=== PATIENT | female | born 1985 | race Caucasian/White ===

== ENCOUNTER 2017-06-16 22:31 | Emergency (ER) | payer SELFPAY ==
[~2017-06-16] VITALS: Ht 157.5 cm; Wt 106.1 kg
[2017-06-16 22:39] VITALS: BP 139/86; Ht 157.5 cm; Wt 106.1 kg
== END 2017-06-17 06:08 | disposition left against medical advice (07) ==
LOC: ED 22:31
DX: Z53.21 Procedure and treatment not carried out due to patient leaving prior to being seen by health care provider (principal)

== ENCOUNTER 2018-09-26 22:12 | Emergency (ER) | payer SELFPAY ==
[~2018-09-26] VITALS: Ht 157.5 cm; Wt 60.1 kg
[2018-09-26 22:25] VITALS: Ht 157.5 cm; Wt 60.1 kg
[2018-09-26 23:56] VITALS: BP 137/87
== END 2018-09-26 23:56 | disposition home or self-care (01) ==
LOC: ED 22:12
DX: M54.6 Pain in thoracic spine (principal); I10 Essential (primary) hypertension; S16.1XXA Strain of muscle, fascia and tendon at neck level, initial encounter; V48.6XXA Car passenger injured in noncollision transport accident in traffic accident, initial encounter; Y93.89 Activity, other specified; Y92.488 Other paved roadways as the place of occurrence of the external cause; Y99.8 Other external cause status
CPT/HCPCS: J1885

== ENCOUNTER 2020-05-05 21:54 | Emergency (ER) | payer MEDICAID ==
[~2020-05-05] VITALS: Ht 157.5 cm; Wt 105.7 kg
[2020-05-05 22:03] VITALS: Ht 157.5 cm; Wt 105.7 kg
[2020-05-06 00:19] LABS: microscopic required? NO
[2020-05-06 00:28] LABS: UA SPECIFIC GRAVITY 1.025 (1.005-1.035); urine erythrocyte NEGATIVE (NEGATIVE)
[2020-05-06 00:30] LABS: BASOPHIL % 0.2 % (0-2); PLATELET COUNT 346 x10^3mcL (130-400)
[2020-05-06 00:40] LABS: CALCIUM 8.7 mg/dL (8.5-10.1); CARBON DIOXIDE 26.6 mmol/L (21-32); CHLORIDE SERUM 103 mmol/L (98-107); CREATININE SERUM 0.6 mg/dL (0.6-1.0); GFR1 > 60 mL/min; GLUCOSE SERUM 95 mg/dL (74-106); POTASSIUM SERUM 3.5 mmol/L (3.5-5.1); SODIUM SERUM 137 mmol/L (136-145)
[2020-05-06 00:45] LABS: ALBUMIN 3.5 g/dL (3.4-5.0); ALKALINE PHOSPHATASE 86 U/L (46-116); ALT/SGPT 19 U/L (14-59); AST/SGOT 9 U/L (15-37); BILIRUBIN TOTAL 0.32 mg/dL (0.20-1.00); LIPASE 99 IU/L (73-393); TOTAL PROTEIN, SERUM 8.1 g/dL (6.4-8.2)
[2020-05-06 02:23] VITALS: BP 104/63
== END 2020-05-06 02:23 | disposition home or self-care (01) ==
LOC: ED 21:54
PROVIDERS: Emergency Medicine
DX: N83.201 Unspecified ovarian cyst, right side (principal); M47.816 Spondylosis without myelopathy or radiculopathy, lumbar region; I10 Essential (primary) hypertension
CPT/HCPCS: J1885; J2405; J7030

== ENCOUNTER 2020-08-17 22:46 | Emergency (ER) | payer MEDICAID ==
[~2020-08-17] VITALS: Ht 157.5 cm; Wt 106.1 kg
[2020-08-17 22:56] VITALS: Ht 157.5 cm; Wt 106.1 kg
[2020-08-18] MEDS ORDERED: IBU600 M2 PO (00:34)
[2020-08-18 00:47] VITALS: BP 108/54
== END 2020-08-18 00:47 | disposition home or self-care (01) ==
LOC: ED 22:46
DX: N64.4 Mastodynia (principal); I10 Essential (primary) hypertension
CPT/HCPCS: J1885